=== PATIENT | female | born 2000 | race Caucasian/White ===

== ENCOUNTER 2022-01-06 03:58 | Emergency (ER) | payer OTHER ==
[2022-01-06 04:47] LABS: BASOPHIL 0.6 % (0-2); HCT 41.2 % (37.0-47.0); HGB 14.1 g/dl (12.5-16.0); LYMPHOCYTE 42.5 % (15-48); MCH 31.2 pg (25.0-31.0); MCHC 34.2 g/dL (32.0-36.0); MCV 91.2 fL (78.0-100.0); MONOCYTE 9.9 % (0-12); MPV 10.2 fL (6.0-9.5); NEUTROPHIL 45.7 % (41-80); NRBC 0; PLT 279 K/uL (150-400); RBC 4.52 M/uL (4.20-5.40); WBC 9.4 K/uL (4.0-10.5)
[2022-01-06 04:49] LABS: BILIRUBIN NEGATIVE (NEGATIVE); BLOOD 3+ Ery/uL (NEGATIVE); CLARITY CLEAR (CLEAR); COLOR YELLOW (YELLOW); GLUCOSE (U) NORMAL (NORMAL); LEUKOCYTES NEGATIVE Leu/uL (NEGATIVE); NITRITE NEGATIVE (NEGATIVE); PROTEIN NEGATIVE (NEGATIVE); SPECIFIC GRAVITY >=1.030 (1.001-1.030); UROBILINOGEN 0.2 mg/dL (0.2-1.0)
[2022-01-06 04:58] LABS: URINARY RBC 20-50
[2022-01-06 04:58] LABS: ALBUMIN 3.8 g/dL (3.4-5.0); BILIRUBIN - TOTAL 0.3 mg/dL (0.2-1.0); BUN/CREAT RATIO (CALC) 21.7 RATIO; CREATININE 0.69 mg/dL (0.51-0.95); GLOBULIN (CALCULATION) 3.5 g/dL; POTASSIUM 3.5 mmol/L (3.5-5.1); TOTAL PROTEIN 7.3 g/dL (6.4-8.2)
[2022-01-06 04:59] LABS: BACTERIA TRACE
[2022-01-06 05:12] LABS: AMPHETAMINES NEGATIVE (NEGATIVE); BARBITURATES NEGATIVE (NEGATIVE); ECSTASY (MDMA) NEGATIVE (NEGATIVE); MARIJUANA (THC) NEGATIVE (NEGATIVE); METHADONE NEGATIVE (NEGATIVE); OPIATES NEGATIVE (NEGATIVE); OXYCODONE NEGATIVE (NEGATIVE)
[2022-01-06] MEDS ORDERED: ONDANSETRON ODT4 MG PO (06:01)
[2022-01-06] MEDS ORDERED: NORCO 5-325 TA1 EACH PO (06:01)
== END 2022-01-06 06:24 | disposition home or self-care (01) ==
LOC: FER 03:58
PROVIDERS: Emergency Medicine
DX: N13.2 Hydronephrosis with renal and ureteral calculous obstruction (principal)
CPT/HCPCS: 36415; 80053; 80305; 81001; 83690; 84703; 85025; 87088; J1170; J1885; J2405; J7030